=== PATIENT | male | born 1960 | race Caucasian/White ===

== ENCOUNTER 2021-11-16 08:03 | Day surgery (SDC) | payer OTHER ==
[2021-11-14 14:43] VITALS: BMI 23.1
[2021-11-16] MEDS ORDERED: PROPOFOL 20 ML ONE ×2 (09:02)
[2021-11-16 09:30] VITALS: PULSE 61
[2021-11-16 09:46] VITALS: BP 107/57; TEMP 98
== END 2021-11-16 10:15 | disposition home or self-care (01) ==
LOC: FASU-ENDO 08:03
PROVIDERS: ATTEND Internal Medicine Gastroenterology
PROC: 0DBK8ZX Excision of Ascending Colon, Via Natural or Artificial Opening Endoscopic, Diagnostic (ICD-10-PCS; principal; 2021-11-16 08:58)
DX: Z12.11 Encounter for screening for malignant neoplasm of colon (principal); D12.2 Benign neoplasm of ascending colon; K57.30 Diverticulosis of large intestine without perforation or abscess without bleeding
CPT/HCPCS: 88305-TC